=== PATIENT | female | born 1990 | race Caucasian/White ===

== ENCOUNTER 2022-01-14 14:42 | Outpatient (CLI) | payer BC, SELFPAY ==
[2022-01-14 21:38] LABS: Iron* 54 ug/dL (37-170)
[2022-01-14 21:47] LABS: Percent Iron Saturation 14 % (20-50); Total Iron Binding Capacity 373 ug/dL (265-497)
== END 2022-01-14 14:43 | disposition home or self-care (01) ==
PROVIDERS: PCP Family Medicine; Visit Provider Family Medicine
DX: Z39.2 Encounter for routine postpartum follow-up (principal); R53.83 Other fatigue
CPT/HCPCS: 83540; 83550; 84443

== ENCOUNTER 2024-08-17 09:14 | Outpatient (CLI) | payer BC, SELFPAY ==
[2024-08-19 05:03] LABS: HPV Source Cervix; HPV, High Risk by TMA Not Detected
[2024-08-29 14:45] LABS: Pap Test Reviewed by Path Done
== END 2024-08-17 09:15 | disposition home or self-care (01) ==
PROVIDERS: PCP Emergency Medicine; Visit Provider Registered Nurse
DX: N64.3 Galactorrhea not associated with childbirth (principal); Z12.4 Encounter for screening for malignant neoplasm of cervix
CPT/HCPCS: 84146; 84443; 87624; 87625; 88141; 88142

== ENCOUNTER 2024-09-18 07:32 | Outpatient (CLI) | payer BC, SELFPAY ==
--- NOTE | 2024-09-18 07:45 | CRLHL7_ITS ---
For Patients: As a result of the Cures Act, medical imaging exams and procedure reports are released immediately into your electronic medical record. You may view this report before your referring provider. If you have questions, please contact your health care provider. DIGITAL DIAGNOSTIC RIGHT MAMMOGRAM USING TOMOSYNTHESIS AND COMPUTER-AIDED DETECTION RIGHT BREAST ULTRASOUND CLINICAL HISTORY: RIGHT breast discharge. COMPARISON: None. TECHNIQUE: Digital RIGHT mammogram in two projections with computer-aided detection. Tomosynthesis was used in this interpretation. Real-time ultrasound imaging of RIGHT breast with imaging documentation. BREAST COMPOSITION: There are scattered areas of fibroglandular density. FINDINGS: 3D CC/MLO RIGHT breast mammogram images submitted. No suspicious mass or architectural distortion. No suspicious calcifications or adenopathy. Targeted RIGHT breast ultrasound performed in the retroareolar region. Normal fibroglandular tissue is present. No suspicious mass or duct ectasia. No intraductal nodule. IMPRESSION: No suspicious findings. No evidence of malignancy or papilloma. RECOMMENDATIONS: Clinical follow-up. Age-appropriate screening mammography. A lay language report of this examination will be provided to the patient. BI-RADS Category 2: Benign Dictated by Munir Silverman MD @ 09/18/2024 8:32:09 AM jj/Dictated by: Munir Silverman MD @ 09/18/2024 8:32:00 AM (Electronically Signed)
--- NOTE | 2024-09-18 08:15 | CRLHL7_ITS ---
For Patients: As a result of the Cures Act, medical imaging exams and procedure reports are released immediately into your electronic medical record. You may view this report before your referring provider. If you have questions, please contact your health care provider. SEE DIGITAL DIAGNOSTIC RIGHT MAMMOGRAM PERFORMED SAME DAY CRL:[email or web address] antonio chou/Dictated by: Munir Silverman MD @ 09/18/2024 8:32:00 AM (Electronically Signed)
== END 2024-09-18 07:33 | disposition home or self-care (01) ==
PROVIDERS: PCP Emergency Medicine; Visit Provider Registered Nurse
DX: N64.3 Galactorrhea not associated with childbirth (principal)
CPT/HCPCS: 76642; 77065; G0279